=== PATIENT | female | born 1985 | race Hispanic/Latino ===

== ENCOUNTER 2022-04-09 13:35 | Emergency (ER) | payer OTHER ==
[~2022-04-09] VITALS: Ht 152.4 cm; Wt 78.0 kg
[2022-04-09] MEDS: ACETAMINOPHEN 500 MG TABLET PO ONE (14:36)
[2022-04-09] MEDS ORDERED: ACET-66 PO (15:47)
[2022-04-09 16:02] VITALS: BP 102/52
== END 2022-04-09 16:03 | disposition home or self-care (01) ==
LOC: EDH 13:35
DX: J06.9 Acute upper respiratory infection, unspecified (principal); Z20.822 Contact with and (suspected) exposure to COVID-19
CPT/HCPCS: 87635; 87804 ×2; 99283; C9803

== ENCOUNTER 2022-07-02 22:14 | Inpatient (IN) | payer MEDICAID, OTHER ==
[~2022-07-02] VITALS: Ht 157.5 cm; Wt 87.5 kg
[~2022-07-02 22:14] MED LIST: ACET-66 PO
[2022-07-02 23:33] LABS: APPEARANCE,URINE CLEAR (CLEAR); BILIRUBIN,URINE NEGATIVE (NEGATIVE); COLOR,URINE YELLOW (YELLOW); GLUCOSE, URINE (UA) NEGATIVE (NEGATIVE); KETONES,URINE 5 mg/dL (NEGATIVE); LEUKOCYTE ESTERASE ,URINE 25 Leu/uL (NEGATIVE); NITRATE,URINE NEGATIVE (NEGATIVE); OCCULT BLOOD,URINE NEGATIVE (NEGATIVE); PH,URINE 5.5 (5.0-8.0); PROTEIN,URINE 20 mg/dL (NEGATIVE)
[2022-07-02 23:35] LABS: BACTERIA,URINE RARE /HPF (None Seen); CALCIUM OXALATE CRYSTALS,UR FEW /LPF (None Seen); MUCUS,URINE RARE LPF (None Seen); SQUAMOUS EPITHELIAL CELL,UR MOD /HPF (0-2)
[2022-07-03 00:58] LABS: HEMATOCRIT 34.2 % (36-48); MEAN CORPUSCULAR HEMOGLOBIN 30.4 pg (27.0-33.0); MEAN CORPUSCULAR HGB CONC 34.5 g/dL (32.0-36.0); MEAN CORPUSCULAR VOLUME 88.1 fL (79-99); RED BLOOD CELL COUNT(AUTO) 3.88 MIL/uL (4.00-5.50); WHITE BLOOD COUNT (AUTO) 7.4 K/uL (4.8-10.8)
[2022-07-03] MEDS ORDERED: OXYTOCIN-LR 20 UNITS/1000 ML 1,000 ML IV SCH ×2 (06:00→13:00)
[2022-07-03] MEDS: LACTATED RINGERS 1000ML 1,000 ML IV PRN ×2 (07:16→09:35)
[2022-07-03 09:28] LABS: RAPID PLASMA REAGIN NONREACTIVE (NONREACTIVE)
[2022-07-03] MEDS ORDERED: LACTATED RINGERS 500 ML 500 ML IV PRN (09:30)
[2022-07-03] MEDS ORDERED: NALOXONE HCL 0.4 MG/1 ML ML IV PRN (09:30)
[2022-07-03] MEDS ORDERED: EPHEDRINE SULFATE 50 MG/ML AMPULE IVP PRN (09:30)
[2022-07-03] MEDS ORDERED: ROPIVACAINE 0.2% 100ML VIAL 100 ML EP SCH (09:30)
[2022-07-03] MEDS ORDERED: MEASLES/MUMPS/RUBELLA VACCINE, LIVE 0.5 ML/VIAL SQ PRN (13:00)
[2022-07-03] MEDS ORDERED: DIPH,PERTUSS(ACELL),TET VAC/PF 0.5 ML VIAL IM PRN (13:00)
[2022-07-03] MEDS ORDERED: WITCH HAZEL 1 PAD TP PRN (13:00)
[2022-07-03] MEDS ORDERED: LANOLIN 30GM OINTMENT TP PRN (13:00)
[2022-07-03] MEDS ORDERED: BENZOCAINE/LANOLIN/ALOE VERA 60 ML AEROSOL TP PRN (13:00)
[2022-07-03] MEDS ORDERED: ACETAMINOPHEN WITH CODEINE 1 TAB TAB PO PRN (13:00)
[2022-07-03] MEDS ORDERED: ACETAMINOPHEN 325 MG TAB PO PRN (13:00)
[2022-07-03 15:30] VITALS: BP 109/65
[2022-07-03] MEDS ORDERED: PREN1TAB80 PO (16:00)
[2022-07-03] MEDS: IBUPROFEN 600 MG TABLET PO PRN (16:25)
[2022-07-03 16:54] VITALS: BP 117/67
[2022-07-03 19:35] VITALS: BP 123/74
[2022-07-03] MEDS: DOCUSATE SODIUM 100 MG CAP PO SCH (21:15)
[2022-07-03 22:40] VITALS: BP 118/70
[2022-07-04 02:48] VITALS: BP 111/70
[2022-07-04 06:40] LABS: HEMATOCRIT 31.8 % (36-48); MEAN CORPUSCULAR HEMOGLOBIN 30.6 pg (27.0-33.0); MEAN CORPUSCULAR HGB CONC 34.6 g/dL (32.0-36.0); MEAN CORPUSCULAR VOLUME 88.6 fL (79-99); RED BLOOD CELL COUNT(AUTO) 3.59 MIL/uL (4.00-5.50); RED CELL DISTRIBUTION WIDTH 12.7 % (11.0-15.5); WHITE BLOOD COUNT (AUTO) 10.3 K/uL (4.8-10.8)
[2022-07-04 08:03] VITALS: BP 109/65
[2022-07-04] MEDS: DOCUSATE SODIUM 100 MG CAP PO SCH (08:49)
[2022-07-04] MEDS: IBUPROFEN 600 MG TABLET PO PRN ×2 (08:51→14:37)
[2022-07-04 11:43] VITALS: BP 102/67
[2022-07-04] MEDS ORDERED: IBUP-2088 PO (11:58)
== END 2022-07-04 14:50 | disposition home or self-care (01) | DRG 807 ==
LOC: LDH 22:14 → WSH 07-03 03:30
PROVIDERS: ADMIT Obstetrics & Gynecology; ATTEND Obstetrics & Gynecology
PROC: 10E0XZZ Delivery of Products of Conception, External Approach (ICD-10-PCS; principal; 2022-07-03)
PROC: 3E0R3BZ Introduction of Anesthetic Agent into Spinal Canal, Percutaneous Approach (ICD-10-PCS; 2022-07-03)
PROC: 00HU33Z Insertion of Infusion Device into Spinal Canal, Percutaneous Approach (ICD-10-PCS; 2022-07-03)
PROC: 10907ZC Drainage of Amniotic Fluid, Therapeutic from Products of Conception, Via Natural or Artificial Opening (ICD-10-PCS; 2022-07-03)
DX: O69.1XX0 Labor and delivery complicated by cord around neck, with compression, not applicable or unspecified (principal); Z37.0 Single live birth; Z3A.39 39 weeks gestation of pregnancy
CPT/HCPCS: 36415; 81001; 85027; 86592; 86701; 86850; 86900; 86901; 87340; 87390; A4314; G0378; J2590; J7120